=== PATIENT | female | born 1980 | race Caucasian/White ===

== ENCOUNTER 2016-07-03 12:51 | Outpatient (CLI) | payer MEDICARE ==
--- NOTE | 2016-07-03 13:44 | XRay Report ---
Lumbar spine 4 views: History: Elevated he is. Findings: Normal height of vertebral bodies and intervertebral disc. Normal articular surfaces. No fracture. No paravertebral mass. Impression: No bony or articular abnormality lumbar spine.
== END 2016-07-03 12:52 | disposition home or self-care (01) ==
LOC: XRAY 12:51
PROVIDERS: ATTEND Internal Medicine Rheumatology
DX: R70.0 Elevated erythrocyte sedimentation rate (principal)
CPT/HCPCS: 72110

== ENCOUNTER 2019-03-30 17:55 | Emergency (ER) | payer MEDICARE | END 2019-03-30 18:00 | disposition left against medical advice (07) | LOC: ED 17:55 | DX: R53.1 Weakness (principal); M54.9 Dorsalgia, unspecified; Z53.21 Procedure and treatment not carried out due to patient leaving prior to being seen by health care provider ==